=== PATIENT | male | born 1960 | race Caucasian/White ===

== ENCOUNTER 2018-06-02 11:29 | Day surgery (SDC) | payer OTHER ==
[~2018-06-02 11:29] MED LIST: EPHEDrine SULFATE 50 MG/5 ML SYG
[2018-06-02] MEDS ORDERED: SOD CHLORIDE 0.9% 1,000 ML IV (12:00)
[2018-06-02] MEDS ORDERED: CEFAZOLIN 1 GM/50 ML (PMX) 50 ML IVPB (12:00)
[2018-06-02] MEDS ORDERED: PROPOFOL 20 ML (15:01)
[2018-06-02] MEDS ORDERED: DEXAMETHASONE 4 MG/ML 1 ML INJ ×2 (15:01→15:57)
[2018-06-02] MEDS ORDERED: SUCCINYLCHOLINE CHLORIDE 100 MG/5 ML SYG IV (15:01)
[2018-06-02] MEDS ORDERED: FENTAnyl 50 MCG/ML VIAL (15:01)
[2018-06-02] MEDS ORDERED: MIDAZOLAM 1 MG/ML 2 ML INJ (15:01)
[2018-06-02] MEDS ORDERED: ROCURONIUM 50 MG INJ (15:01)
[2018-06-02] MEDS ORDERED: LIDOCAINE 2% (SDV) 5 ML INJ (15:01)
[2018-06-02] MEDS ORDERED: ONDANSETRON 4 MG INJ ×2 (15:01→18:07)
[2018-06-02] MEDS ORDERED: SUGAMMADEX SODIUM 200 MG/2 ML VIAL IV (16:03)
[2018-06-02] MEDS ORDERED: PHENYLephrine (100 MCG/ML) 5ML SYG (16:07)
[2018-06-02] MEDS ORDERED: BUPIVACAINE 0.25% (MPF) 30 ML INJ (16:17)
[2018-06-02] MEDS: LIDOCAINE 1% (MPF) 30 ML INJ (16:20)
[2018-06-02] MEDS: BUPIVACAINE 0.5%/EPI (SDV) 10 ML INJ INJ (16:21)
[2018-06-02] MEDS ORDERED: HYDROmorphONE 1 MG/5 ML IV SYRINGE IV ×2 (19:00)
[2018-06-02] MEDS ORDERED: ONDANSETRON 4 MG INJ IV (19:00)
[2018-06-02] MEDS ORDERED: hydrALAzine 20 MG INJ IV (19:00)
[2018-06-02] MEDS ORDERED: OXYCODONE/ACETAMINOPHEN (5/325) TAB PO (19:00)
[2018-06-02] MEDS ORDERED: LABETALOL HCL 20MG INJ IV (19:00)
[2018-06-02] MEDS ORDERED: FENTAnyl 50 MCG/ML VIAL IV ×3 (19:00)
[2018-06-02] MEDS: HYDROmorphONE 1 MG/5 ML IV SYRINGE IV (19:03)
[2018-06-02] MEDS: KETOROLAC 30 MG INJ IV (19:32)
[2018-06-02] MEDS: OXYCODONE/ACETAMINOPHEN (5/325) TAB PO (20:08)
== END 2018-06-02 20:32 | disposition home or self-care (01) ==
LOC: SDS 11:29
DX: K40.91 Unilateral inguinal hernia, without obstruction or gangrene, recurrent (principal)
CPT/HCPCS: 49520; 88304